=== PATIENT | female | born 1955 | race Hispanic/Latino ===

== ENCOUNTER 2016-12-21 18:14 | Emergency (ER) | payer BC ==
[2016-12-21 18:33] VITALS: BMI 18.8
[2016-12-21 18:34] VITALS: BP 105/61; PULSE 65; RESP 17; TEMP 98.3
[2016-12-21] MEDS ORDERED: Lidocaine 2% Inj (20ml) INFIL STA (18:58)
[2016-12-21] MEDS ORDERED: Bacitracin 500 Units/gm Oint Foilpak UD TOP STA (18:59)
[2016-12-21] MEDS ORDERED: TDAP Vaccine 0.5 mL Syr IM ONE (18:59)
--- NOTE | 2016-12-21 19:53 | ED PDOC ---
Arrival/HPI - General Chief Complaint: Abnormal Skin Integrity Time Seen by Provider: 12/21/16 18:58 Historian: Patient - History of Present Illness Narrative History of Present Illness (Text): 12/21/16 21:23 Patient c/o right index finger laceration just prior to arrival. 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 Time/Duration: Prior to Arrival Symptom Onset: Sudden Symptom Course: Unchanged Severity Level: 3 Past Medical History - Provider Review Nursing Documentation Reviewed: Yes - Psychiatric Hx Substance Use: No Family/Social History Family/Social History: Unknown Family HX Smoking Status: Current Some Days Smoker Hx Alcohol Use: No Hx Substance Use: No Allergies/Home Meds Allergies/Adverse Reactions: Allergies ciprofloxacin [From Cipro] Allergy (Verified 12/21/16 18:32) NAUSEA Review of Systems - Physician Review All systems were reviewed & negative as marked: Yes - Review of Systems Skin: Laceration Physical Exam Vital Signs Reviewed: Yes Vital Signs Temp Pulse Resp BP 12/21/16 18:33 98.3 F 65 17 105/61 Temperature: Afebrile Blood Pressure: Normal Pulse: Regular Respiratory Rate: Normal Appearance: Positive for: Well-Appearing, Non-Toxic, Comfortable Pain Distress: Mild Mental Status: Positive for: Alert and Oriented X 3 - Systems Exam Head: Present: Atraumatic, Normocephalic Upper Extremity: Present: Normal ROM, NORMAL PULSES, Capillary Refill < 2s, Other (2 cm lenear laceration of the right index finger distal phalanx) Medical Decision Making - Medication Orders Current Medication Orders: Discontinued Medications Bacitracin (Bacitracin) 1 ea TOP ONCE STA Stop: 12/21/16 19:00 Last Admin: 12/21/16 19:59 Dose: 1 ea Lidocaine HCl (Lidocaine 2% 20ml Vial) 20 ml INFIL STAT STA Stop: 12/21/16 18:59 Last Admin: 12/21/16 19:45 Dose: Tetanus/Reduced Diphtheria/Acell Pertussis (Boostrix Vaccine Inj) 0.5 ml IM .ONCE ONE Stop: 12/21/16 19:00 Last Admin: 12/21/16 19:16 Dose: 0.5 ml Procedure: Wound Repair - Time Out Time Out: Side verified, Site verified, Sterile procedures obs. - Procedure Procedure: Wound Repair: laceration repair - Consent Obtained Consent obtained: Verbal - Performed by Performed by: Mid-level Provider - Indications Indication(s):: Laceration - Location Finger:: Right, Index Dimensions Length cm: 2 Depth:: Epidermis - Anesthetic Technique Anesthetic Technique: Regional block Local/Regional Anesthetic:: Lidocaine 2% - Debris Debris:: None - Irrigated Irrigated with ml of normal saline: NS - Complexity Complexity:: Simple (one layer) - Wound repair method Sutures:: # (5), Size (4-0), Type (nylon), Technique (interupted) - Patient tolerated procedure Patient Tolerated Procedure:: Well Disposition/Present on Arrival - Present on Arrival Any Indicators Present on Arrival: No History of DVT/PE: No History of Uncontrolled Diabetes: No Urinary Catheter: No History of Decub. Ulcer: No History Surgical Site Infection Following: None - Disposition Have Diagnosis and Disposition been Completed?: Yes Diagnosis: Finger laceration Disposition: HOME/ ROUTINE Disposition Time: 19:51 Patient Plan: Discharge Condition: STABLE Discharge Instructions (ExitCare): Finger Laceration (ED) Additional Instructions: Follow up with your PMD within 1-2 days. Return to ED if feel worse. Suture removal in 7-8 days. Prescriptions: Bacitracin OINT 1 applic TP TID #45 g Referrals: Agustín Giles MD [Primary Care Provider] - Follow up with primary Forms: [employer] ([place])
== END 2016-12-21 19:59 | disposition home or self-care (01) ==
LOC: ED 18:14
DX: S61.210A Laceration without foreign body of right index finger without damage to nail, initial encounter (principal); W45.8XXA Other foreign body or object entering through skin, initial encounter; Z23 Encounter for immunization

== ENCOUNTER 2016-12-30 09:26 | Emergency (ER) | payer BC ==
[2016-12-30 09:27] VITALS: BMI 18.8
[2016-12-30 09:42] VITALS: BP 112/73; PULSE 66; RESP 16; TEMP 98.3; O2SAT 99
--- NOTE | 2016-12-30 09:49 | ED PDOC ---
Arrival/HPI - General Chief Complaint: Suture/Staple Removal Time Seen by Provider: 12/30/16 09:48 Historian: Patient - History of Present Illness Narrative History of Present Illness (Text): 12/30/16 09:48 This 61 yo female presents to this ED for sutures removal. Patient had a finger laceration repaired x 9 days ago. Patient denies other complains. Time/Duration: Other (see hpi) Context: Home Past Medical History - Provider Review Nursing Documentation Reviewed: Yes - Psychiatric Hx Substance Use: No - Surgical History Hx Tonsillectomy: Yes Other/Comment: Foot surgery as a child Family/Social History - Physician Review Nursing Documentation Reviewed: Yes Family/Social History: No Known Family HX Smoking Status: Never Smoked Hx Alcohol Use: No Hx Substance Use: No Allergies/Home Meds Allergies/Adverse Reactions: Allergies ciprofloxacin [From Cipro] Allergy (Verified 12/21/16 18:32) NAUSEA Review of Systems - Review of Systems Constitutional: Normal. absent: Fatigue, Weight Change, Fevers, Night Sweats Eyes: Normal ENT: Normal Respiratory: Normal. absent: SOB, Cough Cardiovascular: Normal. absent: Chest Pain, Palpitations Gastrointestinal: Normal. absent: Abdominal Pain, Nausea, Vomiting Genitourinary Female: Normal. absent: Dysuria, Frequency, Hematuria Musculoskeletal: Normal Skin: Normal. absent: Rash Neurological: Normal. absent: Headache, Dizziness, Focal Weakness, Gait Changes , Speech Changes, Disequilibrium, Seizure Endocrine: Normal Hemo/Lymphatic: Normal Psychiatric: Normal Physical Exam Vital Signs Temp Pulse Resp BP Pulse Ox 12/30/16 09:41 98.3 F 66 16 112/73 99 Temperature: Afebrile Blood Pressure: Normal Pulse: Regular Respiratory Rate: Normal Appearance: Positive for: Well-Appearing, Non-Toxic, Comfortable Pain Distress: None Mental Status: Positive for: Alert and Oriented X 3 - Systems Exam Head: Present: Atraumatic, Normocephalic Pupils: Present: PERRL Extroacular Muscles: Present: EOMI Conjunctiva: Present: Normal Mouth: Present: Moist Mucous Membranes Neck: Present: Normal Range of Motion Back: Present: Normal Inspection Upper Extremity: Present: Normal ROM, NORMAL PULSES, Neurovascularly Intact, Capillary Refill < 2s, Other ((+) right index finger healing wound with [address] on palmar side[address] After removing sutures, dehisence of wound was noticed.). No: Cyanosis, Edema, Tenderness, Swelling, Erythema Lower Extremity: Present: Normal Inspection, NORMAL PULSES, Normal ROM, Neurovascularly Intact, Capillary Refill < 2 s. No: Edema, CALF TENDERNESS Neurological: Present: GCS=15, CN II-XII Intact, Speech Normal, Motor Func Grossly Intact, Normal Sensory Function, Normal Cerebellar Funct, Gait Normal Skin: Present: Warm, Dry, Normal Color. No: Rashes Psychiatric: Present: Alert, Oriented x 3, Normal Insight, Normal Concentration Medical Decision Making ED Course and Treatment: 12/30/16 10:10 Re-evaluation. Patient feels better. Discussed results and plan with patient who expresses understanding. All questions answered and there is agreement with the plan to discharge home with instructions. Patient stable for discharge. Return if symptoms persist or worse Re-evaluation Time: 10:10 Reassessment Condition: Re-examined, Improved - Procedure PROCEDURE NOTE (Text): 12/30/16 10:11 PROCEDURE: SUTURE REMOVAL Performed by the emergency provider Location: right 2nd finger Length: 1.5 cm Distal CMS: Normal. No deficits. Neurovascularly intact. Preparation: The wound was cleaned with NS and [place]. The area was prepped and draped in the usual sterile fashion. Procedure: In total, 5 sutures were removed. (+) dehiscence noted Post-Procedure: Good closure and hemostasis. The patient tolerated the procedure well and there were no complications. CSM remains intact. Disposition/Present on Arrival - Present on Arrival Any Indicators Present on Arrival: No History of DVT/PE: No History of Uncontrolled Diabetes: No Urinary Catheter: No History of Decub. Ulcer: No History Surgical Site Infection Following: None - Disposition Have Diagnosis and Disposition been Completed?: Yes Diagnosis: Encounter for wound re-check, Encounter for removal of sutures Disposition: HOME/ ROUTINE Disposition Time: 10:12 Patient Plan: Discharge Condition: GOOD Discharge Instructions (ExitCare): Stitches Removal (ED) Additional Instructions: call private doctor for follow up visit in 2 days. Clean wound daily with soap and water, and apply gauze. Return to emergency if wound become painful, redness or discharge Referrals: Agustín Giles MD [Primary Care Provider] - Follow up with primary Forms: [employer] ([place])
== END 2016-12-30 10:23 | disposition home or self-care (01) ==
LOC: ED 09:26
DX: Z48.02 Encounter for removal of sutures (principal)